=== PATIENT | female | born 1970 | race Caucasian/White ===

== ENCOUNTER 2017-08-27 09:41 | Day surgery (SDC) | payer OTHER ==
--- NOTE | 2017-08-19 11:22 | HP ---
Admitting History and Physical - Primary Care Physician PCP: Rubin Huff - Admission Chief Complaint: right breast LCIS and atypia History of Present Illness: 46 yo female was noted to have right breast calcifications at 11-12 oclock and a complex cyst at 9 oclock. Patient underwent a stereo core bx on 06/11 which was positive for LCIS and atypia. Right US core bx off the 9 oclock position was positive for benign breast tissue. Patient is now presenting for a right breast WE with NL. History Source: Patient Limitations to Obtaining History: No Limitations - Past Medical History Psych: Yes: Other (ADD) Home Medications - Allergies Allergies/Adverse Reactions: Allergies Allergy/AdvReac Type Severity Reaction Status Date / Time naproxen [From Aleve] Allergy Verified 08/19/17 11:24 Penicillins Allergy Verified 08/19/17 11:23 - Home Medications Home Medications (free text): adderall Family Disease History - Family Disease History Family Disease History: CA: Grandparent (paternal GM-lung cancer), Father ( lynphoma) Other Family History: paternal aunt breast and lung cancer Review of Systems - Review of Systems Constitutional: reports: Other (fatigue) Eyes: reports: Blurred Vision Musculoskeletal: reports: Back Pain Physical Examination Constitutional: Yes: Well Nourished Breast(s): Yes: Other (Breasts are diffusely nodular without suspicious masses or adenopathy noted bilaterally. Implants in place.) Problem List - Problems (1) Atypical hyperplasia of right breast Code(s): N62 - HYPERTROPHY OF BREAST (2) Lobular carcinoma of right breast Code(s): C50.911 - MALIGNANT NEOPLASM OF UNSP SITE OF RIGHT FEMALE BREAST Assessment/Plan Right breast WE with NL.
[2017-08-20 09:24] VITALS: BMI 22.5
[2017-08-27] MEDS ORDERED: MIDAZOLAM HCL 2 MG/2 ML SINGLE DOSE VIAL ONE (12:35)
[2017-08-27] MEDS ORDERED: BUPIVACAINE HCL/PF 2.5 MG/ML - 30 ML VIAL IJ ONE (13:17)
[2017-08-27] MEDS ORDERED: LIDOCAINE HCL 1%, 10 MG/ML (20ML VIAL) ONE (13:17)
[2017-08-27] MEDS ORDERED: SCOPOLAMINE HYDROBROMIDE 1 PATCH PATCH.TD72 ONE (13:25)
[2017-08-27] MEDS ORDERED: ONDANSETRON 4 MG/2 ML VIAL ONE (13:41)
[2017-08-27] MEDS ORDERED: ceFAZolin SODIUM 1 GM VIAL ONE (13:41)
[2017-08-27] MEDS ORDERED: DEXAMETHASONE SOD PHOSPHATE 4 MG/1 ML VIAL ONE (13:41)
[2017-08-27] MEDS ORDERED: PROPOFOL 20 ML ONE (13:47)
[2017-08-27] MEDS ORDERED: LIDOCAINE HCL 1%, 10 MG/ML (50 mL VIAL) IJ ONE (14:22)
[2017-08-27] MEDS ORDERED: BUPIVACAINE HCL/PF 0.25% (2.5MG/ML) 10 ML VIAL IJ ONE (14:22)
[2017-08-27] MEDS ORDERED: ONDANSETRON 4 MG/2 ML VIAL IVPUSH PRN (14:41)
[2017-08-27] MEDS ORDERED: oxyCODONE HCL 5 MG TABLET PO PRN (14:42)
[2017-08-27] MEDS ORDERED: DEXTROSE 5%-0.45% SALINE 1,000 ML IV SCH (14:45)
[2017-08-27] MEDS ORDERED: LACTATED RINGERS SOLUTION 1,000 ML IV SCH (14:45)
[2017-08-27] MEDS ORDERED: oxyCODONE HCL 5 MG TABLET ONE (16:07)
--- NOTE | 2017-08-27 16:44 | OP ---
DATE OF OPERATION: 08/27/2017 PREOPERATIVE DIAGNOSIS: Right breast lobular carcinoma in situ. POSTOPERATIVE DIAGNOSIS: Right breast lobular carcinoma in situ. PROCEDURE: Right mammographically localized wide excision. ANESTHESIA: General intubated. ATTENDING SURGEON: Noel Huff MD JET SKI MECHANIC: ERICA Potter ESTIMATED BLOOD LOSS: Minimal. COMPLICATIONS: None. DESCRIPTION OF PROCEDURE: Patient was made aware of the risks and benefits of the procedure and consented. She was placed in a supine position, after going to Radiology where a wire was carefully placed next to the index lesion. After general anesthesia was induced, the patient was intubated. The operative site was prepped and draped in the usual sterile fashion. A curvilinear -areolar incision was made using electrocautery. Thick skin flaps were made. The wire was grasped and withdrawn through the puncture site through the wound. Tissues around the wire were then sharply excised and submitted with a short suture superiorly and long suture lateral. Specimen radiographs confirmed the presence of the index lesion. The implant was not injured during this procedure. The wound was then copiously irrigated with normal saline. Hemostasis maintained by electrocautery. The cavity was then injected with a mixture of 1% lidocaine with 0.25% bupivacaine without epinephrine for a total of 10 mL, paying special attention to avoid injury to the implant. The wound was then closed with deep 3-0 Vicryl, followed by a running subcuticular 4-0 Monocryl. Steri-Strips and sterile dressing were then applied, and the patient, having tolerated the procedure well, was transferred to the recovery room in excellent condition. NOEL HUFF M.D. MALIK/[id number]
[2017-08-27 16:49] VITALS: BP 122/78; PULSE 70; TEMP 97.8
--- NOTE | 2017-08-29 13:34 | PATH ---
Surgical Pathology Report Patient Name: PATRICIO YODER [facility]. Rec. #: [id number] /Age/Gender: 1970 (Age: 46) / F Account: [id number] Location: [facility] Taken: 08/27/2017 Received: 08/27/2017 Reported: 08/29/2017 Physicians: Rubin Huff M.D. Specimen(s) Received RIGHT BREAST WIDE EXCISION Clinical History Rt breast wide excision Final Diagnosis Breast, right, wide excision: Benign breast tissue showing fibrocystic changes including microcyst formation with apocrine metaplasia, usual ductal hyperplasia (udh) and columnar cell change with associated calcifications. Electronically Signed Vianey Salvador M.D. Gross Description Received in formalin, labeled "right breast wide excision" is a 3 x 2.7 x 1.0 cm portion of fibrofatty tissue with a localizing wire in place. A long suture designates the lateral margin and a short suture indicates the superior margin, per the surgeon. The specimen is inked as follows: Anterior-red, deep-black, superior-blue, inferior-green, lateral-yellow, medial-orange. Sectioning reveals fibrous tissue interspersed with adipose tissue. A metallic clip is identified within the tissue. No mass lesion is identified. Entirely submitted in seven cassettes as follows: 1-superior margin; 2-inferior margin; 3-7-fibrous tissue with medial, lateral, anterior and deep margins, entirely submitted. AE/08/28/2017 ebram/08/28/2017
== END 2017-08-27 16:50 | disposition home or self-care (01) ==
LOC: FASU 09:41
PROVIDERS: ATTEND Surgery Surgical Oncology
PROC: 0HBT0ZZ Excision of Right Breast, Open Approach (ICD-10-PCS; principal; 2017-08-27 14:01)
DX: D05.01 Lobular carcinoma in situ of right breast (principal)
CPT/HCPCS: 19281; 84703; 88307-TC; 94760